=== PATIENT | male | born 1975 | race Caucasian/White ===

== ENCOUNTER 2020-01-12 16:53 | Emergency (ER) | payer MEDICARE, MEDICAID, OTHER ==
[2020-01-12] MEDS ORDERED: Morphine 4 MG/ML VIAL ONE (19:19)
[2020-01-12] MEDS ORDERED: Lidocaine 1% w/Epinephrine 1:100K 20 ML VIAL ONE (19:20)
[2020-01-12] MEDS ORDERED: Lidocaine 1% (PF) 30 ML VIAL ONE (19:20)
== END 2020-01-12 20:15 | disposition home or self-care (01) ==
LOC: ERS 16:53
DX: L02.31 Cutaneous abscess of buttock (principal); Z21 Asymptomatic human immunodeficiency virus [HIV] infection status; F41.9 Anxiety disorder, unspecified; F31.9 Bipolar disorder, unspecified; F43.10 Post-traumatic stress disorder, unspecified; F17.210 Nicotine dependence, cigarettes, uncomplicated; Z79.899 Other long term (current) drug therapy
CPT/HCPCS: 10060; 96372; 99282; U0003; 87635; J2001; J2270

== ENCOUNTER 2020-01-14 17:09 | Emergency (ER) | payer MEDICARE, MEDICAID | END 2020-01-14 18:48 | disposition home or self-care (01) | LOC: ERS 17:09 | DX: L02.31 Cutaneous abscess of buttock (principal); I10 Essential (primary) hypertension; F41.9 Anxiety disorder, unspecified; F31.9 Bipolar disorder, unspecified; F43.10 Post-traumatic stress disorder, unspecified; F17.210 Nicotine dependence, cigarettes, uncomplicated; B20 Human immunodeficiency virus [HIV] disease; Z79.899 Other long term (current) drug therapy | CPT/HCPCS: 99282 ==